=== PATIENT | female | born 1970 | race Hispanic/Latino ===

== ENCOUNTER 2020-09-24 08:52 | Outpatient (CLI) | payer BC ==
--- NOTE | 2020-09-24 10:54 | Ultrasound Report ---
ULTRASOUND PELVIS COMPLETE ULTRASOUND TRANSVAGINAL INDICATION / CLINICAL INFORMATION: OVARION CYST RIGHT SIDE. TECHNIQUE: Transabdominal and Transvaginal. Duplex Color Doppler used: Yes. COMPARISON: None available FINDINGS: UTERUS: Present. - Appearance (if present): Homogeneous appearance. No evidence for fibroid disease. A 9 mm simple denisa earing cyst is noted in the anterior wall of the lower uterine segment just to the right of midline. This appears to be at the site of a scar per the technologist. - Size in cm (if present): 9.4 x 2.7 x 5.1. - Endometrial Complex (if present): No significant abnormality.. Thickness in cm (if measured) = 0.5 - Mass lesions: None. - Additional findings: None. RIGHT ADNEXA: No significant ovarian cyst or mass. Normal color Doppler blood flow. The right ovary m easures 2.0 x 1.0 x 2.5 cm. LEFT ADNEXA: A 1.1 cm simple cyst is identified in the left ovary. Normal color Doppler blood flow. T he left ovary measures 2.0 x 1.0 x 2.7 cm. URINARY BLADDER: No significant abnormality. FREE FLUID: None. ADDITIONAL FINDINGS: None. IMPRESSION: No right ovarian cyst is identified. A 1.1 cm simple appearing left ovarian cyst is identified. 9 mm cyst in the myometrium of the lower anterior uterine wall as described above. This has a benign appearance. Signer Name: Veto Dill Jr, MD Signed: 09/24/2020 10:50 AM Workstation Name: [id number]
--- NOTE | 2020-10-14 14:18 | Mammography Report ---
DIGITAL SCREENING MAMMOGRAM WITH CAD, 09/24/2020 CLINICAL INFORMATION / INDICATION: Routine screening mammography. SCREENING MAMMOGRAM TECHNIQUE: Digital bilateral 2D mammography was obtained in the craniocaudal and mediolateral obliqu e projections. This examination was interpreted with the benefit of Computer-Aided Detection analysis . COMPARISON: 07/26/2019, 04/27/2018, 11/11/2016 FINDINGS: Breast Density: There are scattered areas of fibroglandular density. No dominant mass, suspicious calcifications, or architectural distortion in the right breast. There is a focal asymmetry noted within the far posterior third of the left breast, approximately 12. 7 cm from the nipple. This focal asymmetry is within the slightly inner, slightly upper quadrant. IMPRESSION: Indeterminate focal asymmetry within the slightly inner, slightly upper quadrant of the l eft breast. Spot compression views in the MLO and CC projection as well as ultrasound are recommended . Follow up recommendation: Special View: Spot BI-RADS Category 0: Incomplete. Needs additional imaging evaluation and/or prior mammograms for shailesh rison. A "normal" or negative report should not discourage follow up or biopsy of a clinically significant f inding. A written summary of these findings will be mailed to the patient. The patient will be entered into a mammography reporting system which will generate a reminder letter for the patient's next appointmen t at the appropriate interval. The [employer] recommends yearly mammograms starting at age 40 and continuing as l shreyas as a woman is in good health. Breast MRI is recommended for women with an approximate 20-25% or greater lifetime risk of breast cancer, including women with a strong family history of breast or ova bobby cancer or who have been treated for Hodgkin's disease. Signer Name: Evgeny River DO Signed: 10/14/2020 2:13 PM Workstation Name: [id number]
== END 2020-09-24 08:53 | disposition home or self-care (01) ==
LOC: MAMMO 08:52
PROVIDERS: ATTEND Obstetrics & Gynecology
DX: Z12.31 Encounter for screening mammogram for malignant neoplasm of breast (principal); N83.291 Other ovarian cyst, right side
CPT/HCPCS: 76830; 76856; 77067

== ENCOUNTER 2020-10-20 13:02 | Outpatient (CLI) | payer BC ==
--- NOTE | 2020-10-20 15:25 | Ultrasound Report ---
LEFT DIGITAL DIAGNOSTIC MAMMOGRAM WITH CAD CONVENTIONAL, 10/20/2020 LEFT LIMITED BREAST ULTRASOUND CLINICAL INFORMATION / INDICATION: Patient presents as a callback from screening mammogram for furthe r evaluation of a focal asymmetric density in the left breast. TECHNIQUE: Digital left mammographic imaging was performed. Spot compression views were obtained. Larry ited ultrasound was performed. This examination was interpreted with the benefit of Computer-Aided De tection (CAD) analysis. COMPARISON: Prior mammogram 09/24/2020 FINDINGS: Breast Density: There are scattered areas of fibroglandular density. MAMMOGRAPHIC FINDINGS: Spot compression views reveal a persistent 1.8 cm nodular focal asymmetry in t he far posterior upper inner quadrant of the left breast. Targeted ultrasound performed for further e valuation. ULTRASOUND FINDINGS: Targeted ultrasound evaluation was performed of the area of interest. Targeted ultrasound was performed of the upper inner quadrant of the left breast. Likely corresponding with t he mammographic finding, there is a complicated cyst versus oval circumscribed hypoechoic mass in the left breast 11:00 position located 8 cm from the nipple measuring up to 1.3 x 0.4 x 1.2 cm. The lesi on is parallel. No internal vascularity is demonstrated. Incidental note is made of benign duct ectas ia in the subareolar left breast. IMPRESSION: 1. A complicated cyst versus oval circumscribed hypoechoic mass likely corresponds with the mammograp hic finding and is considered probably benign. Recommend left diagnostic mammogram and left breast ul trasound in 6 months to ensure stability. Follow up recommendation: Short term follow up in 6 months. BI-RADS Category 3: Probably Benign. Followup in 6 months. A "normal" or negative report should not discourage follow up or biopsy of a clinically significant f inding. A written summary of these findings will be mailed to the patient. The patient will be entered into a mammography reporting system which will generate a reminder letter for the patient's next appointmen t at the appropriate interval. According to the [employer], yearly mammograms are recommended starting at age 40 and continuing as long as a woman is in good health. Breast MRI is recommended for women with an denisa roximately 20-25% or greater lifetime risk of breast cancer, including women with a strong family his tory of breast or ovarian cancer and women who have been treated for Hodgkin's disease. Signer Name: Grace Ryan MD Signed: 10/20/2020 3:21 PM Workstation Name: [email or web address] [place]
== END 2020-10-20 13:03 | disposition home or self-care (01) ==
LOC: MAMMO 13:02
PROVIDERS: ATTEND Obstetrics & Gynecology
DX: R92.8 Other abnormal and inconclusive findings on diagnostic imaging of breast (principal)

== ENCOUNTER 2020-11-07 10:26 | Outpatient (CLI) | payer BC ==
--- NOTE | 2020-11-07 12:22 | Ultrasound Report ---
ULTRASOUND TRANSVAGINAL INDICATION / CLINICAL INFORMATION: CYST OF UTERUS. TECHNIQUE: Transvaginal. Duplex Color Doppler used: Yes. COMPARISON: 09/24/2020 FINDINGS: UTERUS: Present. - Appearance (if present): Previously described cystic lesion in the anterior lower uterine segment m easuring up to 1.1 cm appears unchanged since the previous exam. - Size in cm (if present): 7.5 x 2.9 x 3.9. - Endometrial Complex (if present): No significant abnormality.. Thickness in cm (if measured) = 0.7 - Mass lesions: None - Additional findings: None. RIGHT ADNEXA: No significant ovarian cyst or mass. Normal color Doppler blood flow. LEFT ADNEXA: Left ovarian cyst has resolved since the previous exam. No mass or additional abnormalit y. Normal color Doppler blood flow. URINARY BLADDER: No significant abnormality. FREE FLUID: None. ADDITIONAL FINDINGS: None. IMPRESSION: Stable appearance of the cyst in the anterior lower uterus since 09/24/2020. Small left ovarian cyst has resolved. Signer Name: Veto Dill Jr, MD Signed: 11/07/2020 12:18 PM Workstation Name: [id number]
== END 2020-11-07 10:27 | disposition home or self-care (01) ==
LOC: US 10:26
PROVIDERS: ATTEND Obstetrics & Gynecology
DX: N83.291 Other ovarian cyst, right side (principal)
CPT/HCPCS: 76830

== ENCOUNTER 2021-04-30 10:09 | Outpatient (CLI) | payer BC ==
--- NOTE | 2021-04-30 13:33 | Magnetic Resonance Report ---
MRI lumbar spine without contrast INDICATION: Back pain TECHNIQUE: Axial sagittal images FINDINGS: Alignment appears normal. Craniocervical junction appears normal. L1-2: Normal L2-L3: Facet change without spinal canal narrowing or neuroforaminal narrowing. L3-L4: Facet hypertrophy. No spinal canal narrowing or neuroforaminal narrowing. L4-L5: Facet hypertrophy with broad-based posterior disc bulge. No significant neuroforaminal narrowi ng. L5-S1: Postoperative changes suggested. Some scarring in the left without significant neuroforaminal narrowing or large recurrent disc herniation. IMPRESSION: Postoperative changes suggested L5-S1. There may be some scarring in the left lateral recess however no large disc herniation or severe neuroforaminal narrowing. Signer Name: Seymour Jaramillo MD Signed: 04/30/2021 1:28 PM Workstation Name: [id number]
--- NOTE | 2021-05-01 12:11 | XRay Report ---
LUMBAR SPINE 5 VIEWS INDICATION / CLINICAL INFORMATION: M54.16. COMPARISON: None available. FINDINGS: VERTEBRAE: No acute fracture. No significant malalignment. DISC SPACES / FACET JOINTS:Mild disc space narrowing at L5-S1, otherwise no significant degenerative disc disease. PARASPINAL SOFT TISSUES:No significant abnormality. ADDITIONAL FINDINGS: None. Signer Name: Evgeny River DO Signed: 05/01/2021 12:07 PM Workstation Name: [id number]
== END 2021-04-30 10:10 | disposition home or self-care (01) ==
LOC: MRI 10:09
PROVIDERS: ATTEND Family Medicine
DX: M51.16 Intervertebral disc disorders with radiculopathy, lumbar region (principal); M48.07 Spinal stenosis, lumbosacral region
CPT/HCPCS: 72110; 72148